=== PATIENT | female | born 1995 | race Caucasian/White ===

== ENCOUNTER 2017-12-27 13:53 | Emergency (ER) | payer OTHER ==
[2017-12-27 15:56] LABS: URINE BLOOD (Dip) POC Trace-lysed (NEGATIVE); URINE GLUCOSE (Dip) POC Negative (NEGATIVE); URINE KETONES (Dip) POC 1+ (NEGATIVE); URINE LEUKOCYTE EST (Dip) POC Trace (NEGATIVE); URINE NITRITE (Dip) POC Negative (NEGATIVE); URINE TOTAL PROTEIN POC Negative (NEGATIVE)
[2017-12-27 15:56] LABS: URINE PH (Dip) POC 5.5 (5.0-8.5)
== END 2017-12-27 18:03 | disposition home or self-care (01) ==
LOC: FTE 13:53
DX: R10.2 Pelvic and perineal pain (principal)
CPT/HCPCS: 76830; 76856; 81003; 99284-25

== ENCOUNTER 2018-04-18 08:28 | Emergency (ER) | payer OTHER ==
[2018-04-18 08:50] LABS: URINE BLOOD (Dip) POC Trace-intact (NEGATIVE); URINE GLUCOSE (Dip) POC Negative (NEGATIVE); URINE KETONES (Dip) POC Negative (NEGATIVE); URINE LEUKOCYTE EST (Dip) POC 1+ (NEGATIVE); URINE NITRITE (Dip) POC Negative (NEGATIVE); URINE TOTAL PROTEIN POC Negative (NEGATIVE)
== END 2018-04-18 09:39 | disposition home or self-care (01) ==
LOC: FTE 08:28
DX: N39.0 Urinary tract infection, site not specified (principal); L25.9 Unspecified contact dermatitis, unspecified cause
CPT/HCPCS: 81003; 81025; 99283

== ENCOUNTER 2018-06-24 18:20 | Emergency (ER) | payer OTHER ==
[2018-06-24] MEDS: morphine 4 MG/ML VIAL IV (19:29)
[2018-06-24] MEDS: SOD CHLORIDE 0.9% 1,000 ML IV (19:29)
[2018-06-24] MEDS: ONDANSETRON 4 MG INJ IV (19:29)
[2018-06-24 19:44] LABS: ADD MAN DIFF? NO
[2018-06-24 19:46] LABS: BASOPHILS % 0.2 % (0.0-2.0); EOSINOPHILS % 0.3 % (0.0-7.0); HEMATOCRIT 37.9 % (37.0-47.0); HEMOGLOBIN 12.7 g/dl (12.0-16.0); LYMPHOCYTES # 1.4 10^3/ul (0.8-2.9); LYMPHOCYTES % 14.9 % (15.0-51.0); MEAN CORPUSCULAR HEMOGLOBIN 28.1 pg (29.0-33.0); MEAN CORPUSCULAR HGB CONC 33.5 g/dl (32.0-37.0); MEAN CORPUSCULAR VOLUME 83.8 fl (82.0-101.0); MEAN PLATELET VOLUME 10.5 fl (7.4-10.4); MONOCYTE # 0.9 10^3/ul (0.3-0.9); MONOCYTES % 9.4 % (0.0-11.0); NEUTROPHIL # 6.8 10^3/ul (1.6-7.5); NEUTROPHILS % 74.8 % (39.0-77.0); PLATELET COUNT 188 10^3/UL (140-415); RED BLOOD COUNT 4.52 10^6/ul (4.20-5.40); RED CELL DISTRIBUTION WIDTH 13.2 % (11.5-14.5)
[2018-06-24 19:46] LABS: WHITE BLOOD COUNT 9.1 10^3/ul (4.8-10.8)
[2018-06-24 19:49] LABS: ADD UMIC YES; UR ASCORBIC ACID NEGATIVE (NEGATIVE); UR BILIRUBIN (Dip) NEGATIVE (NEGATIVE); UR BLOOD (Dip) 2+ mg/dL (NEGATIVE); UR CLARITY SLIGHTLY CLOUDY (CLEAR); UR COLOR YELLOW (YELLOW); UR GLUCOSE (Dip) NEGATIVE (NEGATIVE); UR KETONES (Dip) NEGATIVE (NEGATIVE); UR LEUKOCYTE ESTERASE (Dip) 1+ Leu/ul (NEGATIVE); UR MUCUS FEW /HPF (NONE SEEN); UR NITRITE (Dip) NEGATIVE (NEGATIVE); UR RBC 4 /HPF (0-5); UR SPECIFIC GRAVITY (Dip) 1.016 (1.003-1.030); UR SQUAMOUS EPITHELIAL CELL FEW /HPF (FEW); UR TOTAL PROTEIN (Dip) NEGATIVE (NEGATIVE); UR UROBILINOGEN (Dip) NEGATIVE (NEGATIVE); UR WBC 2 /HPF (0-5)
[2018-06-24 20:04] LABS: ALANINE AMINOTRANSFERASE 28 IU/L (13-69); ALBUMIN 4.3 g/dl (3.3-4.9); ALBUMIN/GLOBULIN RATIO 1.16; ALKALINE PHOSPHATASE 86 IU/L (42-121); AMYLASE 65 U/L (11-123); ANION GAP 14 (8-16); ASPARTATE AMINO TRANSFERASE 22 IU/L (15-46); BILIRUBIN,INDIRECT 0.4 mg/dl (0-1.1); BILIRUBIN,TOTAL 0.4 mg/dl (0.2-1.3); BLOOD UREA NITROGEN 9 mg/dl (7-20); CALCIUM 9.8 mg/dl (8.4-10.2); CARBON DIOXIDE 27 mmol/L (21-31); CHLORIDE 103 mmol/L (97-110); CREATININE 0.58 mg/dl (0.44-1.00); GLUCOSE 91 mg/dl (70-220); LIPASE 80 U/L (23-300); POTASSIUM 3.7 mmol/L (3.5-5.1); SODIUM 140 mmol/L (135-144)
[2018-06-24] MEDS: IOHEXOL 300MG/ML 150 ML BTL (20:51)
[2018-06-24] MEDS: SOD CHLORIDE 0.9% 100 ML (20:51)
== END 2018-06-24 22:50 | disposition home or self-care (01) ==
LOC: FTE 18:20
DX: N39.0 Urinary tract infection, site not specified (principal); N83.201 Unspecified ovarian cyst, right side
CPT/HCPCS: 36415; 74177; 76705; 80053; 81001; 81025; 82150; 83690; 85025; 87086; 96374; 96375; 99285-25

== ENCOUNTER 2018-07-22 16:15 | Emergency (ER) | payer OTHER ==
[2018-07-22 17:01] LABS: ADD MAN DIFF? NO
[2018-07-22 17:11] LABS: WHITE BLOOD COUNT 8.6 10^3/ul (4.8-10.8)
[2018-07-22 17:11] LABS: BASOPHILS % 0.4 % (0.0-2.0); EOSINOPHILS # 0.1 10^3/ul (0.0-0.5); EOSINOPHILS % 0.8 % (0.0-7.0); HEMATOCRIT 37.9 % (37.0-47.0); HEMOGLOBIN 12.7 g/dl (12.0-16.0); LYMPHOCYTES # 1.9 10^3/ul (0.8-2.9); LYMPHOCYTES % 21.8 % (15.0-51.0); MEAN CORPUSCULAR HEMOGLOBIN 28.7 pg (29.0-33.0); MEAN CORPUSCULAR HGB CONC 33.5 g/dl (32.0-37.0); MEAN CORPUSCULAR VOLUME 85.7 fl (82.0-101.0); MEAN PLATELET VOLUME 10.2 fl (7.4-10.4); MONOCYTE # 0.5 10^3/ul (0.3-0.9); MONOCYTES % 6.1 % (0.0-11.0); NEUTROPHILS % 70.5 % (39.0-77.0); PLATELET COUNT 223 10^3/UL (140-415); RED BLOOD COUNT 4.42 10^6/ul (4.20-5.40); RED CELL DISTRIBUTION WIDTH 13.4 % (11.5-14.5)
[2018-07-22 17:30] LABS: PROTIME 13.3 Sec (11.9-14.9)
[2018-07-22 17:31] LABS: PARTIAL THROMBOPLASTIN TIME 34.3 Sec (25.0-35.0)
[2018-07-22 17:43] LABS: ADD UMIC YES; UR ASCORBIC ACID NEGATIVE (NEGATIVE); UR BILIRUBIN (Dip) NEGATIVE (NEGATIVE); UR BLOOD (Dip) 1+ mg/dL (NEGATIVE); UR CLARITY CLEAR (CLEAR); UR COLOR STRAW (YELLOW); UR GLUCOSE (Dip) NEGATIVE (NEGATIVE); UR KETONES (Dip) NEGATIVE (NEGATIVE); UR LEUKOCYTE ESTERASE (Dip) NEGATIVE Leu/ul (NEGATIVE); UR NITRITE (Dip) NEGATIVE (NEGATIVE); UR RBC 0 /HPF (0-5); UR SPECIFIC GRAVITY (Dip) 1.009 (1.003-1.030); UR TOTAL PROTEIN (Dip) NEGATIVE (NEGATIVE); UR UROBILINOGEN (Dip) NEGATIVE (NEGATIVE); UR WBC 0 /HPF (0-5)
== END 2018-07-22 19:07 | disposition home or self-care (01) ==
LOC: FTE 16:15
DX: O20.0 Threatened abortion (principal); R10.2 Pelvic and perineal pain; Z3A.01 Less than 8 weeks gestation of pregnancy
CPT/HCPCS: 36415; 76801; 76817; 81001; 84702; 85025; 85610; 85730; 86900; 86901; 99284-25

== ENCOUNTER 2018-10-10 15:02 | Emergency (ER) | payer OTHER ==
[2018-10-10] MEDS: ACETAMINOPHEN 500 MG TAB PO (16:36)
[2018-10-10] MEDS: ONDANSETRON 4 MG INJ IV (16:36)
[2018-10-10] MEDS: SOD CHLORIDE 0.9% 1,000 ML IV (16:36)
[2018-10-10 16:42] LABS: ADD MAN DIFF? NO
[2018-10-10 16:44] LABS: ABNORMAL IP MESSAGE 1; BASOPHILS % 0.2 % (0.0-2.0); EOSINOPHILS % 0.3 % (0.0-7.0); HEMATOCRIT 35.7 % (37.0-47.0); HEMOGLOBIN 12.4 g/dl (12.0-16.0); LYMPHOCYTES # 0.5 10^3/ul (0.8-2.9); LYMPHOCYTES % 7.2 % (15.0-51.0); MEAN CORPUSCULAR HGB CONC 34.7 g/dl (32.0-37.0); MEAN CORPUSCULAR VOLUME 86.2 fl (82.0-101.0); MEAN PLATELET VOLUME 10.2 fl (7.4-10.4); MONOCYTE # 0.5 10^3/ul (0.3-0.9); MONOCYTES % 6.9 % (0.0-11.0); NEUTROPHIL # 5.7 10^3/ul (1.6-7.5); NEUTROPHILS % 84.9 % (39.0-77.0); PLATELET COUNT 153 10^3/UL (140-415); RED BLOOD COUNT 4.14 10^6/ul (4.20-5.40); RED CELL DISTRIBUTION WIDTH 13.4 % (11.5-14.5)
[2018-10-10 16:44] LABS: WHITE BLOOD COUNT 6.7 10^3/ul (4.8-10.8)
[2018-10-10 16:53] LABS: ADD UMIC NO; UR ASCORBIC ACID 20 mg/dL (NEGATIVE); UR BACTERIA FEW /HPF (NONE SEEN); UR BILIRUBIN (Dip) NEGATIVE (NEGATIVE); UR BLOOD (Dip) NEGATIVE (NEGATIVE); UR CLARITY SLIGHTLY CLOUDY (CLEAR); UR COLOR YELLOW (YELLOW); UR GLUCOSE (Dip) NEGATIVE (NEGATIVE); UR KETONES (Dip) 2+ mg/dL (NEGATIVE); UR LEUKOCYTE ESTERASE (Dip) NEGATIVE Leu/ul (NEGATIVE); UR MUCUS FEW /HPF (NONE SEEN); UR NITRITE (Dip) NEGATIVE (NEGATIVE); UR RBC 1 /HPF (0-5); UR SPECIFIC GRAVITY (Dip) 1.012 (1.003-1.030); UR SQUAMOUS EPITHELIAL CELL FEW /HPF (FEW); UR TOTAL PROTEIN (Dip) NEGATIVE (NEGATIVE); UR UROBILINOGEN (Dip) NEGATIVE (NEGATIVE); UR WBC 2 /HPF (0-5)
[2018-10-10 16:59] LABS: ALANINE AMINOTRANSFERASE 25 IU/L (13-69); ALBUMIN 3.8 g/dl (3.3-4.9); ALBUMIN/GLOBULIN RATIO 1.15; ALKALINE PHOSPHATASE 76 IU/L (42-121); ANION GAP 12 (5-13); ASPARTATE AMINO TRANSFERASE 24 IU/L (15-46); BILIRUBIN,INDIRECT 0.4 mg/dl (0-1.1); BILIRUBIN,TOTAL 0.4 mg/dl (0.2-1.3); BLOOD UREA NITROGEN 5 mg/dl (7-20); CALCIUM 8.9 mg/dl (8.4-10.2); CARBON DIOXIDE 24 mmol/L (21-31); CHLORIDE 101 mmol/L (97-110); CREATININE 0.41 mg/dl (0.44-1.00); Estimated GFR > 60 mL/min (>60); GLUCOSE 101 mg/dl (70-220); LIPASE 48 U/L (23-300); POTASSIUM 3.8 mmol/L (3.5-5.1); SODIUM 137 mmol/L (135-144); TOTAL PROTEIN 7.1 g/dl (6.1-8.1)
[2018-10-10 17:00] LABS: POSITIVE DIFF @See below
== END 2018-10-10 18:04 | disposition home or self-care (01) ==
LOC: FTE 15:02
DX: O21.9 Vomiting of pregnancy, unspecified (principal); R10.9 Unspecified abdominal pain; R19.7 Diarrhea, unspecified; Z3A.18 18 weeks gestation of pregnancy
CPT/HCPCS: 36415; 76805; 80053; 81001; 81003; 83690; 85025; 96361; 96374; 99285-25

== ENCOUNTER 2019-01-30 07:38 | Outpatient (CLI) | payer OTHER ==
[2019-01-30 08:50] LABS: ADD MAN DIFF? NO
[2019-01-30 08:51] LABS: WHITE BLOOD COUNT 6.5 10^3/ul (4.8-10.8)
[2019-01-30 08:51] LABS: BASOPHILS % 0.3 % (0.0-2.0); EOSINOPHILS # 0.1 10^3/ul (0.0-0.5); EOSINOPHILS % 1.2 % (0.0-7.0); HEMATOCRIT 34.8 % (37.0-47.0); HEMOGLOBIN 12.1 g/dl (12.0-16.0); LYMPHOCYTES # 1.4 10^3/ul (0.8-2.9); LYMPHOCYTES % 21.5 % (15.0-51.0); MEAN CORPUSCULAR HEMOGLOBIN 30.9 pg (29.0-33.0); MEAN CORPUSCULAR HGB CONC 34.8 g/dl (32.0-37.0); MEAN CORPUSCULAR VOLUME 88.8 fl (82.0-101.0); MEAN PLATELET VOLUME 10.9 fl (7.4-10.4); MONOCYTE # 0.4 10^3/ul (0.3-0.9); MONOCYTES % 6.5 % (0.0-11.0); NEUTROPHIL # 4.5 10^3/ul (1.6-7.5); NEUTROPHILS % 70.2 % (39.0-77.0); PLATELET COUNT 142 10^3/UL (140-415); RED BLOOD COUNT 3.92 10^6/ul (4.20-5.40); RED CELL DISTRIBUTION WIDTH 13.6 % (11.5-14.5)
[2019-01-30 09:10] LABS: INR 0.97
[2019-01-30 09:11] LABS: PARTIAL THROMBOPLASTIN TIME 34.6 Sec (23.0-35.0)
== END 2019-01-30 09:35 | disposition home or self-care (01) ==
LOC: OBT 07:38 → L-D 07:39 → OBT 09:35
DX: O9A.213 Injury, poisoning and certain other consequences of external causes complicating pregnancy, third trimester (principal); Z3A.35 35 weeks gestation of pregnancy; W18.2XXA Fall in (into) shower or empty bathtub, initial encounter
CPT/HCPCS: 76818; 85025; 85610; 85730

== ENCOUNTER 2019-02-08 20:23 | Outpatient (CLI) | payer OTHER ==
[2019-02-08 21:03] LABS: ADD UMIC YES; UR ASCORBIC ACID NEGATIVE (NEGATIVE); UR BACTERIA MODERATE /HPF (NONE SEEN); UR BILIRUBIN (Dip) NEGATIVE (NEGATIVE); UR BLOOD (Dip) NEGATIVE (NEGATIVE); UR CLARITY SLIGHTLY CLOUDY (CLEAR); UR COLOR STRAW (YELLOW); UR GLUCOSE (Dip) NEGATIVE (NEGATIVE); UR KETONES (Dip) NEGATIVE (NEGATIVE); UR LEUKOCYTE ESTERASE (Dip) TRACE Leu/ul (NEGATIVE); UR NITRITE (Dip) NEGATIVE (NEGATIVE); UR RBC 6 /HPF (0-5); UR SPECIFIC GRAVITY (Dip) 1.005 (1.003-1.030); UR SQUAMOUS EPITHELIAL CELL MODERATE /HPF (FEW); UR TOTAL PROTEIN (Dip) NEGATIVE (NEGATIVE); UR UROBILINOGEN (Dip) NEGATIVE (NEGATIVE); UR WBC 4 /HPF (0-5)
== END 2019-02-08 22:37 | disposition home or self-care (01) ==
LOC: OBT 20:23 → L-D 20:23 → OBT 22:37
DX: O9A.213 Injury, poisoning and certain other consequences of external causes complicating pregnancy, third trimester (principal); Z3A.36 36 weeks gestation of pregnancy
CPT/HCPCS: 76818; 81001

== ENCOUNTER 2019-02-16 21:05 | Outpatient (CLI) | payer OTHER ==
[2019-02-16 22:01] LABS: ADD UMIC NO; UR ASCORBIC ACID NEGATIVE (NEGATIVE); UR BILIRUBIN (Dip) NEGATIVE (NEGATIVE); UR BLOOD (Dip) NEGATIVE (NEGATIVE); UR CLARITY CLEAR (CLEAR); UR COLOR YELLOW (YELLOW); UR GLUCOSE (Dip) NEGATIVE (NEGATIVE); UR KETONES (Dip) NEGATIVE (NEGATIVE); UR LEUKOCYTE ESTERASE (Dip) NEGATIVE Leu/ul (NEGATIVE); UR NITRITE (Dip) NEGATIVE (NEGATIVE); UR SPECIFIC GRAVITY (Dip) 1.017 (1.003-1.030); UR TOTAL PROTEIN (Dip) NEGATIVE (NEGATIVE); UR UROBILINOGEN (Dip) NEGATIVE (NEGATIVE)
[2019-02-16] MEDS: AL HYDROX/MG HYDROX/SIMETH 30 ML CUP PO (22:53)
== END 2019-02-17 00:18 | disposition home or self-care (01) ==
LOC: OBT 21:05 → L-D 21:07
DX: O26.893 Other specified pregnancy related conditions, third trimester (principal); R10.2 Pelvic and perineal pain; Z3A.37 37 weeks gestation of pregnancy
CPT/HCPCS: 76705; 76818; 81003; 87086

== ENCOUNTER 2019-02-22 15:15 | Outpatient (CLI) | payer OTHER | END 2019-02-22 16:25 | disposition home or self-care (01) | LOC: OBT 15:15 → L-D 15:17 → OBT 16:25 | DX: O36.8130 Decreased fetal movements, third trimester, not applicable or unspecified (principal); Z3A.38 38 weeks gestation of pregnancy | CPT/HCPCS: 76818 ==

== ENCOUNTER 2019-03-03 06:15 | Inpatient (IN) | payer OTHER ==
[2019-03-03] MEDS ORDERED: OXYTOCIN 30 UNITS/LR 500 ML IV (08:00)
[2019-03-03] MEDS ORDERED: BUTORPHANOL 2 MG INJ IV (08:00)
[2019-03-03] MEDS ORDERED: CARBOPROST 250 MCG INJ IM (08:00)
[2019-03-03] MEDS ORDERED: MISOPROSTOL 200 MCG TAB PR (08:00)
[2019-03-03] MEDS: LACTATED RINGER'S 1,000 ML IV ×2 (08:42→16:55)
[2019-03-03] MEDS ORDERED: OXYCODONE/ACETAMINOPHEN (5/325) TAB PO (09:30)
[2019-03-03] MEDS ORDERED: IBUPROFEN 600 MG TAB PO (09:30)
[2019-03-03] MEDS: OXYTOCIN 30 UNITS/LR 500 ML IV (09:40)
[2019-03-03 11:09] LABS: ADD MAN DIFF? NO
[2019-03-03 11:14] LABS: WHITE BLOOD COUNT 6.2 10^3/ul (4.8-10.8)
[2019-03-03 11:14] LABS: BASOPHILS % 0.2 % (0.0-2.0); EOSINOPHILS # 0.1 10^3/ul (0.0-0.5); EOSINOPHILS % 1.1 % (0.0-7.0); HEMATOCRIT 35.8 % (37.0-47.0); LYMPHOCYTES # 1.2 10^3/ul (0.8-2.9); LYMPHOCYTES % 19.1 % (15.0-51.0); MEAN CORPUSCULAR HEMOGLOBIN 30.4 pg (29.0-33.0); MEAN CORPUSCULAR HGB CONC 33.5 g/dl (32.0-37.0); MEAN CORPUSCULAR VOLUME 90.6 fl (82.0-101.0); MEAN PLATELET VOLUME 11.6 fl (7.4-10.4); MONOCYTE # 0.5 10^3/ul (0.3-0.9); MONOCYTES % 8.6 % (0.0-11.0); NEUTROPHIL # 4.4 10^3/ul (1.6-7.5); NEUTROPHILS % 70.5 % (39.0-77.0); PLATELET COUNT 136 10^3/UL (140-415); RED BLOOD COUNT 3.95 10^6/ul (4.20-5.40); RED CELL DISTRIBUTION WIDTH 13.6 % (11.5-14.5)
[2019-03-03 11:31] LABS: INR 0.92; PROTIME 12.5 Sec (11.9-14.9)
[2019-03-03 11:32] LABS: PARTIAL THROMBOPLASTIN TIME 32.6 Sec (23.0-35.0)
[2019-03-03 15:38] LABS: RAPID PLASMA REAGIN NONREACTIVE (NR)
[2019-03-03] MEDS: MISOPROSTOL 50 MCG CAPSULE PO ×2 (17:30→22:17)
[2019-03-03] MEDS: ACETAMINOPHEN 325 MG TAB PO ×2 (19:55→20:38)
[2019-03-04] MEDS: LACTATED RINGER'S 1,000 ML IV ×4 (01:15→15:20)
[2019-03-04] MEDS: MISOPROSTOL 50 MCG CAPSULE PO (02:46)
[2019-03-04] MEDS: BUTORPHANOL 2 MG INJ IV (10:28)
[2019-03-04] MEDS ORDERED: FENTAnyl 2MCG/ML-ROPIV 0.2% 100 ML (14:31)
[2019-03-04] MEDS: OXYTOCIN 30 UNITS/LR 500 ML IV ×3 (16:43→19:35)
[2019-03-04] MEDS: MINERAL OIL LIGHT 10 ML VIAL TOP (16:44)
[2019-03-04] MEDS: LIDOCAINE 1% (MPF) 30 ML INJ INJ (16:44)
[2019-03-04] MEDS: METHYLERGONOVINE 0.2 MG INJ IM (17:19)
[2019-03-04] MEDS ORDERED: NALOXONE (0.4 MG/ML) INJ IV (19:30)
[2019-03-04] MEDS: KETOROLAC 30 MG INJ IV (19:35)
[2019-03-04] MEDS: ACETAMINOPHEN 500 MG TAB PO (19:35)
[2019-03-04] MEDS: FENTAnyl 2MCG/ML-ROPIV 0.2% 100 ML BAG EPI (19:35)
[2019-03-04] MEDS ORDERED: LACTATED RINGER'S 1,000 ML IV* (19:56)
[2019-03-04] MEDS ORDERED: HYDROCODONE/APAP (5/325) TAB PO ×2 (20:00)
[2019-03-04] MEDS ORDERED: METHYLERGONOVINE 0.2 MG INJ IM (20:00)
[2019-03-04] MEDS ORDERED: DIBUCAINE 1% 30 GM OINT TOP (20:00)
[2019-03-04] MEDS ORDERED: CARBOPROST 250 MCG INJ IM (20:00)
[2019-03-04] MEDS ORDERED: OXYTOCIN 30 UNITS/LR 500 ML IV (20:00)
[2019-03-04] MEDS ORDERED: MISOPROSTOL 200 MCG TAB PR (20:00)
[2019-03-04] MEDS ORDERED: ZOLPIDEM 5 MG TAB PO (20:00)
[2019-03-04] MEDS: MAGNESIUM HYDROXIDE 30ML CUP PO (21:20)
[2019-03-04] MEDS: SENNA/DOCUSATE NA (8.6MG/50MG) TAB PO (21:20)
[2019-03-04] MEDS: IBUPROFEN 600 MG TAB PO (23:53)
[2019-03-05] MEDS: CIPROFLOXACIN 500 MG TAB PO ×2 (05:42→17:41)
[2019-03-05] MEDS: IBUPROFEN 600 MG TAB PO ×4 (05:42→23:37)
[2019-03-05] MEDS ORDERED: CIPROFLOXACIN 500 MG TAB PO (06:00)
[2019-03-05 06:54] LABS: ADD MAN DIFF? NO
[2019-03-05 06:59] LABS: BASOPHILS % 0.2 % (0.0-2.0); EOSINOPHILS # 0.1 10^3/ul (0.0-0.5); EOSINOPHILS % 0.6 % (0.0-7.0); HEMATOCRIT 30.1 % (37.0-47.0); HEMOGLOBIN 10.3 g/dl (12.0-16.0); LYMPHOCYTES # 1.6 10^3/ul (0.8-2.9); LYMPHOCYTES % 20.1 % (15.0-51.0); MEAN CORPUSCULAR HEMOGLOBIN 30.9 pg (29.0-33.0); MEAN CORPUSCULAR HGB CONC 34.2 g/dl (32.0-37.0); MEAN CORPUSCULAR VOLUME 90.4 fl (82.0-101.0); MEAN PLATELET VOLUME 11.1 fl (7.4-10.4); MONOCYTE # 0.9 10^3/ul (0.3-0.9); MONOCYTES % 10.9 % (0.0-11.0); NEUTROPHIL # 5.4 10^3/ul (1.6-7.5); NEUTROPHILS % 67.7 % (39.0-77.0); PLATELET COUNT 141 10^3/UL (140-415); RED BLOOD COUNT 3.33 10^6/ul (4.20-5.40); RED CELL DISTRIBUTION WIDTH 13.6 % (11.5-14.5)
[2019-03-05] MEDS: MAGNESIUM HYDROXIDE 30ML CUP PO ×2 (08:29→21:08)
[2019-03-05] MEDS: SENNA/DOCUSATE NA (8.6MG/50MG) TAB PO ×2 (08:30→21:08)
[2019-03-05] MEDS: LANOLIN HPA 1 PKT TOP (10:41)
[2019-03-05] MEDS: BENZOCAINE 20% 56 ML SPRAY TOP (17:45)
[2019-03-05] MEDS: WITCH HAZEL/GLYCERIN PAD PR (17:45)
[2019-03-06] MEDS: IBUPROFEN 600 MG TAB PO ×2 (05:41→12:40)
[2019-03-06] MEDS: CIPROFLOXACIN 500 MG TAB PO (05:42)
[2019-03-06] MEDS: DIPHTH/TET/ACEL PERTUSS (ADULT) 0.5 ML VIAL IM* (09:00)
[2019-03-06] MEDS: VARICELLA VACCINE LIVE/PF 1,350 UNIT/0.5 ML ML SC* (09:00)
[2019-03-06] MEDS: MAGNESIUM HYDROXIDE 30ML CUP PO (09:00)
[2019-03-06] MEDS: WITCH HAZEL/GLYCERIN PAD PR (09:00)
[2019-03-06] MEDS: SENNA/DOCUSATE NA (8.6MG/50MG) TAB PO (09:00)
[2019-03-06] MEDS: BENZOCAINE 20% 56 ML SPRAY TOP (09:01)
[2019-03-06] MEDS: MEASLES,MUMPS,RUBELLA VACCINE INJ SC* (14:22)
== END 2019-03-06 15:30 | disposition home or self-care (01) | DRG 807 ==
LOC: OBT 06:15 → PP1 03-04 20:09 → L-D 06:15 → OBT 07:47 → L-D 07:45
PROVIDERS: Obstetrics & Gynecology
PROC: 10E0XZZ Delivery of Products of Conception, External Approach (ICD-10-PCS; principal; 2019-03-04)
PROC: 0W8NXZZ Division of Female Perineum, External Approach (ICD-10-PCS; 2019-03-04)
DX: O76 Abnormality in fetal heart rate and rhythm complicating labor and delivery (principal); Z37.0 Single live birth; Z3A.40 40 weeks gestation of pregnancy; Z23 Encounter for immunization
CPT/HCPCS: 62322; 76815; 76818; 85025; 85610; 85730; 86592; 86850; 86900; 86901; 90716

== ENCOUNTER 2019-06-19 10:26 | Emergency (ER) | payer OTHER ==
[2019-06-19] MEDS: ACETAMINOPHEN 500 MG TAB PO (11:20)
[2019-06-19 11:27] LABS: URINE BLOOD (Dip) POC Trace-intact (NEGATIVE); URINE GLUCOSE (Dip) POC Negative (NEGATIVE); URINE KETONES (Dip) POC Negative (NEGATIVE); URINE LEUKOCYTE EST (Dip) POC Negative (NEGATIVE); URINE NITRITE (Dip) POC Negative (NEGATIVE); URINE TOTAL PROTEIN POC Negative (NEGATIVE)
[2019-06-19 11:27] LABS: URINE PH (Dip) POC 6.5 (5.0-8.5)
== END 2019-06-19 14:46 | disposition home or self-care (01) ==
LOC: FTE 10:26
DX: K59.00 Constipation, unspecified (principal)
CPT/HCPCS: 76830; 76856; 81003; 81025; 99284-25